=== PATIENT | female | born 1945 | race Caucasian/White ===

== ENCOUNTER 2019-01-15 02:20 | Emergency (ER) | payer MEDICARE ==
[2019-01-15] MEDS ORDERED: Adacel (T-DAP) 0.5 ML SYRINGE ONE (03:05)
== END 2019-01-15 03:31 | disposition home or self-care (01) ==
LOC: ERS 02:20
DX: S01.01XA Laceration without foreign body of scalp, initial encounter (principal); E78.5 Hyperlipidemia, unspecified; G30.9 Alzheimer's disease, unspecified; I10 Essential (primary) hypertension; F17.210 Nicotine dependence, cigarettes, uncomplicated; J44.9 Chronic obstructive pulmonary disease, unspecified; Z79.82 Long term (current) use of aspirin; Z79.899 Other long term (current) drug therapy; W22.8XXA Striking against or struck by other objects, initial encounter
CPT/HCPCS: 12001; 90471; 90715